=== PATIENT | male | born 1985 | race American Indian/Alaskan Native ===

== ENCOUNTER 2020-09-21 21:20 | Emergency (ER) | payer MEDICAID ==
--- NOTE | 2020-09-21 21:31 | Emergency Department Report ---
Blank Doc - Documentation Documentation: 35-year-old male that presents with right upper abdominal pain and epigastric pain times several days with some nausea. Exam; right upper quad tenderness. 1- This initial assessment/diagnostic orders/clinical plan/ treatment(s) is/are subject to change based on pt's health status, clinical progression and re- assessment by fellow clinical providers in the ED. Further treatment and workup at subsequent clinical provers discretion. Patient/guardians urged not to elope from ED as their condition may be serious if not clinically assessed and managed. 2-labs 3-UA
[2020-09-21 21:43] LABS: Basophils # (Auto) 0.1 K/mm3 (0.0-0.1); Basophils % (Auto) 0.8 % (0.0-1.8); Eosinophils # (Auto) 0.2 K/mm3 (0.0-0.4); Eosinophils % (Auto) 2.4 % (0.0-4.3); Hematocrit 46.5 % (35.5-45.6); Hemoglobin 16.6 gm/dl (11.8-15.2); Lymphocytes # (Auto) 2.8 K/mm3 (1.2-5.4); Lymphocytes % (Auto) 38.9 % (13.4-35.0); Mean Corpuscular HGB Conc 36 % (32-34); Mean Corpuscular Volume 91 fl (84-94); Monocytes # (Auto) 0.8 K/mm3 (0.0-0.8); Platelet Count 223 K/mm3 (140-440); Red Blood Count 5.11 M/mm3 (3.65-5.03); Red Cell Distribution Width 13.1 % (13.2-15.2)
[2020-09-21 22:02] LABS: Alanine Aminotransferase 67 units/L (7-56); Albumin 4.5 g/dL (3.9-5); BUN/Creatinine Ratio 8; Blood Urea Nitrogen 11 mg/dL (9-20); Calcium 10.7 mg/dL (8.4-10.2); Hemolysis Index 19
[2020-09-21 22:11] LABS: Bilirubin,Urine NEG (Negative); Blood,Urine NEG (Negative); Color,Urine Yellow (Yellow); Mucus,Urine FEW /HPF; Protein,Urine <15 mg/dL mg/dL (Negative); RBC,Urine < 1.0 /HPF (0.0-6.0); Urobilinogen,Urine < 2.0 mg/dL (<2.0); WBC,Urine < 1.0 /HPF (0.0-6.0)
[2020-09-21] MEDS ORDERED: LIDOCAINE VISCOUS 2% 15 ML ORAL LIQD PO ONE (22:36)
[2020-09-21] MEDS ORDERED: ALUM-MAG HYDROXIDE-SIMETHICONE 200-200-20MG/5ML ORAL LIQD 30 ML PO ONE (22:36)
--- NOTE | 2020-09-21 22:40 | Emergency Department Report ---
ED Abdominal Pain HPI - General Chief Complaint: Abdominal Pain Stated Complaint: PAIN IN MIDDLE OF CHEST Time Seen by Provider: 09/21/20 21:30 Source: patient Mode of arrival: Ambulatory Limitations: No Limitations - History of Present Illness Initial Comments: Patient is 35 years old male with no significant past medical history. Patient presented to the ER complaining of epigastric abdominal pain for several days. Patient denied any radiation to the chest. Patient describes his pain as burning sensation. Patient noticed that pain increase with spicy food. Patient stated that he had this issue before and he was diagnosed with gastric ulcer at [facility]. Patient denied any chest pain or shortness of breath. No nausea or vomiting. MD Complaint: abdominal pain -: days(s) Location: epigastric Radiation: none Migration to: no migration Quality: burning Consistency: intermittent - Related Data Allergies Allergy/AdvReac Type Severity Reaction Status Date / Time No Known Allergies Allergy Unverified 09/21/20 21:30 ED Review of Systems ROS: Stated complaint: PAIN IN MIDDLE OF CHEST Other details as noted in HPI Comment: All other systems reviewed and negative Constitutional: denies: chills, fever Respiratory: denies: cough, shortness of breath Cardiovascular: denies: chest pain, palpitations Gastrointestinal: abdominal pain. denies: nausea, vomiting, diarrhea, constipation, hematemesis, melena, hematochezia Neurological: denies: headache, weakness, numbness, paresthesias ED Past Medical Hx - Past Medical History Previous Medical History?: No - Social History Smoking Status: Current Every Day Smoker Substance Use Type: None ED Physical Exam - General Limitations: No Limitations General appearance: alert, in no apparent distress - Head Head exam: Present: atraumatic, normocephalic, normal inspection - Eye Eye exam: Present: normal appearance - ENT ENT exam: Present: normal exam, normal orophraynx, mucous membranes moist - Neck Neck exam: Present: normal inspection, full ROM. Absent: tenderness, meningismus - Respiratory Respiratory exam: Present: normal lung sounds bilaterally - Cardiovascular Cardiovascular Exam: Present: regular rate, normal rhythm, normal heart sounds - GI/Abdominal GI/Abdominal exam: Present: soft, normal bowel sounds. Absent: distended, tenderness, guarding, rebound, rigid, organomegaly, pulsatile mass, hernia - Back Exam Back exam: Present: normal inspection, full ROM. Absent: CVA tenderness (R), CVA tenderness (L) - Neurological Exam Neurological exam: Present: alert, oriented X3, CN II-XII intact - Psychiatric Psychiatric exam: Present: normal mood ED Course Vital Signs 09/21/20 21:25 Temperature 98.5 F Pulse Rate 86 Respiratory 16 Rate Blood Pressure 135/99 O2 Sat by Pulse 99 Oximetry ED Medical Decision Making - Lab Data Result diagrams: 09/21/20 21:31 09/21/20 21:31 - Medical Decision Making Patient is 35 years old male with no significant past medical history. Patient presented to the ER complaining of epigastric abdominal pain for several days. Patient denied any radiation to the chest. Patient describes his pain as burning sensation. Patient noticed that pain increase with spicy food. Patient stated that he had this issue before and he was diagnosed with gastric ulcer at [facility]. Patient denied any chest pain or shortness of breath. No nause a or vomiting. Labs reviewed and is unremarkable. Patient given GI cocktail and stated that his pain completely resolved. I believe patient symptom is most likely related to peptic ulcer or gastritis. Patient given prescription for Nexium and advised to follow-up with his primary care physician in the next 2 to 3 days and to return to the ER if he develop any new symptoms. Critical care attestation.: If time is entered above; I have spent that time in minutes in the direct care of this critically ill patient, excluding procedure time. ED Disposition Clinical Impression: Acute abdominal pain, Gastritis Disposition: - TO HOME OR SELFCARE Is pt being admited?: No Condition: Stable Instructions: Abdominal Pain, Adult, Gastritis, Adult Referrals: DEVON JOYA MD [Primary Care Provider] - 3-5 Days
[2020-09-21 23:56] VITALS: BP 132/66
== END 2020-09-21 23:57 | disposition home or self-care (01) ==
LOC: ED 21:20
DX: K29.70 Gastritis, unspecified, without bleeding (principal); R10.13 Epigastric pain; F17.200 Nicotine dependence, unspecified, uncomplicated
CPT/HCPCS: 36415; 80053; 81001; 83690; 85025

== ENCOUNTER 2021-03-16 18:53 | Emergency (ER) | payer MEDICARE ==
[2021-03-16 21:15] VITALS: BP 137/98
[2021-03-17 00:36] LABS: Basophils % (Auto) 0.4 % (0.0-1.8); Eosinophils # (Auto) 0.2 K/mm3 (0.0-0.4); Eosinophils % (Auto) 3.8 % (0.0-4.3); Hematocrit 50.5 % (35.5-45.6); Hemoglobin 17.1 gm/dl (11.8-15.2); Lymphocytes # (Auto) 2.4 K/mm3 (1.2-5.4); Lymphocytes % (Auto) 43.1 % (13.4-35.0); Mean Corpuscular HGB Conc 34 % (32-34); Mean Corpuscular Volume 93 fl (84-94); Monocytes # (Auto) 0.7 K/mm3 (0.0-0.8); Monocytes % (Auto) 12.9 % (0.0-7.3); Platelet Count 195 K/mm3 (140-440); Red Blood Count 5.42 M/mm3 (3.65-5.03)
[2021-03-17 00:57] LABS: Alanine Aminotransferase 45 units/L (7-56); Albumin 4.6 g/dL (3.9-5); BUN/Creatinine Ratio 6; Bilirubin,Direct < 0.2 mg/dL (0-0.2); Blood Urea Nitrogen 9 mg/dL (9-20); Calcium 9.5 mg/dL (8.4-10.2); Hemolysis Index 8
[2021-03-17] MEDS ORDERED: ALUM-MAG HYDROXIDE-SIMETHICONE 200-200-20MG/5ML ORAL LIQD 30 ML PO ONE (02:33)
[2021-03-17] MEDS ORDERED: LIDOCAINE VISCOUS 2% 15 ML ORAL LIQD PO ONE (02:33)
[2021-03-17] MEDS ORDERED: HYOSCYAMINE SUBL 0.125 MG TAB SL ONE (02:33)
--- NOTE | 2021-03-17 02:39 | Emergency Department Report ---
ED General Adult HPI - General Chief complaint: Abdominal Pain Stated complaint: ABD PAIN Time Seen by Provider: 03/17/21 02:25 Source: patient Mode of arrival: Ambulatory Limitations: No Limitations - History of Present Illness Initial comments: 35-year-old male patient with history of recurrent abdominal pain presents to the emergency department with complaints of epigastric pain starting 3 days ago. Pain is worse with eating and lying supine. Patient states symptoms are consistent with prior episodes of abdominal pain. He states he was evaluated at [facility] [place] [place] and diagnosed with both GERD and peptic ulcer disease. He also states he has never been evaluated by [employer] [facility] or undergone endoscopy. GI cocktails have been helpful in relieving his symptoms on prior occasions. He is not currently on H2 blockers or PPIs. States he does not consume alcohol on a regular basis. Surgical history includes prior appendectomy. Denies f ever, chills, nausea, vomiting, diarrhea, constipation, chest pain, shortness of breath. Denies all other complaints at this time. - Related Data Previous Rx's Medication Instructions Recorded Last Taken Type Esomeprazole Magnesium [NexIUM] 40 mg PO QDAY #30 capsule. 09/21/20 Unknown Rx Ondansetron [Zofran Odt] 4 mg PO Q8HR PRN #14 tab.tim 09/21/20 Unknown Rx Famotidine [Pepcid] 20 mg PO BID 14 Days tablet 03/17/21 Unknown Rx Omeprazole 20 mg PO DAILY 14 Days tab.delvis. 03/17/21 Unknown Rx Allergies Allergy/AdvReac Type Severity Reaction Status Date / Time No Known Allergies Allergy Unverified 09/21/20 21:30 ED Review of Systems ROS: Stated complaint: ABD PAIN Other details as noted in HPI Other: GENERAL: Negative for fever, chills, weight change, anorexia, fatigue. ENT: Negative for ear pain, difficulty hearing, sore throat, nasal congestion, epistaxis. CARDIOVASCULAR: Negative for chest pain, palpitations, lower extremity swelling. PULMONARY: Negative for cough, dyspnea, wheezing, orthopnea, cyanosis. GASTROINTESTINAL: Positive for abdominal pain. MUSCULOSKELETAL: Negative for joint pain, joint swelling, myalgias, back pain, neck pain. NEUROLOGICAL: Negative for headache, seizure, syncope, paresthesias, weakness. INTEGUMENTARY: Negative for erythema, rash, diaphoresis, laceration, ecchymosis. HEMATOLOGICAL: Negative for hemoptysis, hematemesis, hematochezia, hematuria. PSYCHIATRIC: Negative for hallucinations, suicidal ideation, homicidal ideation, anxiety, depression. ED Past Medical Hx - Past Medical History Previous Medical History?: No - Surgical History Past Surgical History?: Yes Additional Surgical History: appendectomy - Social History Smoking Status: Current Every Day Smoker Substance Use Type: None - Medications Home Medications: Home Medications Medication Instructions Recorded Confirmed Last Taken Type Esomeprazole Magnesium [NexIUM] 40 mg PO QDAY #30 lauren. 09/21/20 Unknown Rx Ondansetron [Zofran Odt] 4 mg PO Q8HR PRN #14 tab.rapdis 09/21/20 Unknown Rx Famotidine [Pepcid] 20 mg PO BID 14 Days tablet 03/17/21 Unknown Rx Omeprazole 20 mg PO DAILY 14 Days tab.rap. 03/17/21 Unknown Rx ED Physical Exam - General Limitations: No Limitations - Other Other exam information: General: Awake and alert. No acute distress. Head: Atraumatic, normocephalic. Eyes: EOMI. Pupils are equal and round. Normal sclera and conjunctiva. ENT: Oral mucosa is moist. Normal pharyngeal exam. Neck: Supple. No lymphadenopathy. Pulmonary: No respiratory distress. Clear to auscultation bilaterally. Cardiac: Regular rate and rhythm. Pulses are palpable and equal bilaterally. No lower extremity cyanosis or edema. Skin: Warm and dry. No rashes. Abdomen: Soft, non-protuberant. Mild epigastric tenderness without guarding, rigidity, or rebound. Bowel sounds are normal. No organomegaly or masses noted. Alegre sign is negative. Back: Normal alignment. No CVA tenderness. Extremities: Symmetrical. Full range of motion intact. Neurological: Alert and oriented, appropriately interactive, no focal deficits. Psych: Cooperative. Appropriate mood and affect. Speech is evenly metered. Thoughts are logically construed. ED Course Vital Signs 03/16/21 20:51 Temperature 98.2 F Pulse Rate 57 L Respiratory 16 Rate Blood Pressure 137/98 O2 Sat by Pulse 99 Oximetry ED Medical Decision Making - Lab Data Result diagrams: 03/16/21 23:43 03/16/21 23:43 - Medical Decision Making Differential diagnosis including but not limited to: cholecystitis, khadar lithiasis, ascending cholangitis, pancreatitis, peptic ulcer disease, GERD On reevaluation, patient remains stable. Repeat abdominal exam is benign. Labs are unremarkable. Patient is afebrile, hemodynamically stable, no distress. History and exam findings suggestive of PUD vs. GERD. Symptoms have been occurring intermittently for several months. No clinical indication for further diagnostic work-up on an emergent basis at this time. Patient will be treated symptomatically and referred to [facility] for further evaluation on an outpatient basis. Patient expressed understanding and is agreeable to plan of care. Lifestyle modifications discussed. Dietary modifications discussed. Strict return precautions provided. Repeat exam is unremarkable and benign. History, exam, diagnostic testing, and current condition do not suggest worrisome pathology to warrant further testing, continued ED treatment, admission, or surgical evaluation at this point. Given the low probability of a significant medical illness, it would be more likely to result in harm than benefit to perform further testing at this stage. Discussed findings, presumptive diagnosis, need for follow-up and specific signs/symptoms that should prompt immediate return to the emergency department. Instructions were explained in detail to the patient in addition to giving written discharge information. Patient expressed understanding and was given the opportunity to ask questions, all of which were satisfactorily answered prior to discharge home. Critical care attestation.: If time is entered above; I have spent that time in minutes in the direct care of this critically ill patient, excluding procedure time. ED Disposition Clinical Impression: Recurrent upper abdominal pain Disposition: - TO HOME OR SELFCARE Is pt being admited?: No Does the pt Need Aspirin: No Condition: Stable Instructions: Gastroesophageal Reflux Disease, Adult, [id number] Additional Instructions: Take Pepcid as directed. Take Omeprazole as directed. Avoid greasy/fatty/acidic/spicy foods, which may worsen your symptoms. Avoid alcohol, which may worsen your symptoms. Avoid lying flat within 3 hours of eating or drinking, which may worsen your symptoms. Follow-up with [facility] this week. Call today to schedule an appointment. See referral information below. Return to the emergency department immediately for new or worsening symptoms. Prescriptions: Omeprazole 20 mg PO DAILY 14 Days tab.rap. Famotidine [Pepcid] 20 mg PO BID 14 Days tablet Referrals: [facility] [Provider Group] - 3-5 Days Time of Disposition: 02:48
== END 2021-03-17 04:06 | disposition home or self-care (01) ==
LOC: ED 18:53
DX: R10.13 Epigastric pain (principal); Z98.890 Other specified postprocedural states; F17.200 Nicotine dependence, unspecified, uncomplicated
CPT/HCPCS: 36415; 80048; 80076; 83690; 85025; 99283

== ENCOUNTER 2021-12-28 14:28 | Emergency (ER) | payer MEDICARE ==
[2021-12-28] MEDS ORDERED: ONDANSETRON 4 MG ODT TAB PO ONE (21:48)
[2021-12-28] MEDS ORDERED: SUCRALFATE 1 GM TAB PO ONE (21:48)
[2021-12-28] MEDS ORDERED: FAMOTIDINE 20 MG TAB PO ONE (21:48)
[2021-12-28] MEDS ORDERED: DICYCLOMINE 20 MG TAB PO ONE (21:49)
--- NOTE | 2021-12-28 22:10 | Emergency Department Report ---
ED Abdominal Pain HPI - General Chief Complaint: Abdominal Pain Stated Complaint: ABDOMINAL PAIN Source: patient Mode of arrival: Ambulatory Limitations: No Limitations - History of Present Illness Initial Comments: Patient is a 36-year-old -Iranian male with a history of chronic alcohol abuse and chronic recurrent alcoholic gastritis who presents to the ED with complaint of acute onset of persistent epigastric pain with nausea and vomiting for the last few days after heavy alcohol consumption 3 days ago. Patient states that the last 2 days he has not been able to keep anything down because of persistent epigastric pain and nausea and vomiting. Patient admits to heavy alcohol consumption 3 days ago. Patient denies dizziness, syncope, fever, chills, diarrhea, sore throat, chest pain, shortness of breath, dysuria, urinary frequency and urgency and testicular pain, cough or headache. MD Complaint: abdominal pain (epigastric), other (nausea and vomiting) -: Sudden, days(s) (3) Location: epigastric Radiation: none Migration to: no migration Severity: moderate Severity scale (0 -10): 4 Quality: aching, burning Consistency: constant Improves With: nothing Context: other (chronic alcohol abuse) Associated Symptoms: denies other symptoms, nausea, vomiting. denies: diarrhea, fever, chills, constipation, dysuria, hematemesis, hematochezia, melena, hematuria, anorexia, syncope - Related Data Previous Rx's Medication Instructions Recorded Last Taken Type Omeprazole 20 mg PO DAILY 14 Days tab. 03/17/21 Unknown Rx Dicyclomine [Bentyl] 20 mg PO Q6H PRN #30 tablet 12/28/21 Unknown Rx Esomeprazole Magnesium [NexIUM] 40 mg PO QDAY #60 capsule. 12/28/21 Unknown Rx Famotidine [Pepcid] 20 mg PO BID #60 tablet 12/28/21 Unknown Rx Ondansetron [Zofran ODT TAB] 4 mg PO Q8HR PRN #15 tabarthur 12/28/21 Unknown Rx Allergies Allergy/AdvReac Type Severity Reaction Status Date / Time No Known Allergies Allergy Unverified 09/21/20 21:30 ED Review of Systems ROS: Stated complaint: ABDOMINAL PAIN Other details as noted in HPI Constitutional: denies: chills, fever Eyes: denies: eye pain, eye discharge, vision change ENT: denies: ear pain, throat pain Respiratory: denies: cough, shortness of breath, wheezing Cardiovascular: denies: chest pain, palpitations Endocrine: no symptoms reported Gastrointestinal: abdominal pain (epigastric), nausea, vomiting. denies: diarrhea Genitourinary: denies: urgency, dysuria Musculoskeletal: denies: back pain, joint swelling, arthralgia Skin: denies: rash, lesions Neurological: denies: headache, weakness, paresthesias Psychiatric: denies: anxiety, depression Hematological/Lymphatic: denies: easy bleeding, easy bruising ED Past Medical Hx - Past Medical History Previous Medical History?: Yes - Surgical History Past Surgical History?: Yes Additional Surgical History: appendectomy - Social History Smoking Status: Current Every Day Smoker Substance Use Type: None - Medications Home Medications: Home Medications Medication Instructions Recorded Confirmed Last Taken Type Omeprazole 20 mg PO DAILY 14 Days tab.rap. 03/17/21 Unknown Rx Dicyclomine [Bentyl] 20 mg PO Q6H PRN #30 tablet 12/28/21 Unknown Rx Esomeprazole Magnesium [NexIUM] 40 mg PO QDAY #60 capsule. 12/28/21 Unknown Rx Famotidine [Pepcid] 20 mg PO BID #60 tablet 12/28/21 Unknown Rx Ondansetron [Zofran ODT TAB] 4 mg PO Q8HR PRN #15 tab.rapant 12/28/21 Unknown Rx ED Physical Exam - General Limitations: No Limitations General appearance: alert, in no apparent distress - Head Head exam: Present: atraumatic, normocephalic, normal inspection - Eye Eye exam: Present: normal appearance, PERRL, EOMI Pupils: Present: normal accommodation - ENT ENT exam: Present: normal exam, normal orophraynx, mucous membranes moist, TM's normal bilaterally, normal external ear exam - Neck Neck exam: Present: normal inspection, full ROM. Absent: tenderness - Respiratory Respiratory exam: Present: normal lung sounds bilaterally. Absent: respiratory distress, wheezes, rales, rhonchi, chest wall tenderness, accessory muscle use, decreased breath sounds, prolonged expiratory - Cardiovascular Cardiovascular Exam: Present: regular rate, normal rhythm, normal heart sounds. Absent: systolic murmur, diastolic murmur, rubs, gallop - GI/Abdominal GI/Abdominal exam: Present: soft, tenderness (palpable mild epigastric tenderness), normal bowel sounds. Absent: guarding, rebound, hyperactive bowel sounds, hypoactive bowel sounds, organomegaly - Extremities Exam Extremities exam: Present: normal inspection, full ROM, normal capillary refill. Absent: tenderness - Back Exam Back exam: Present: normal inspection, full ROM. Absent: tenderness, CVA tenderness (R), CVA tenderness (L), muscle spasm, paraspinal tenderness, vertebral tenderness - Neurological Exam Neurological exam: Present: alert, oriented X3, CN II-XII intact, normal gait, reflexes normal - Psychiatric Psychiatric exam: Present: normal affect, normal mood - Skin Skin exam: Present: warm, dry, intact, normal color. Absent: rash ED Course Vital Signs 12/28/21 15:33 Temperature 98.3 F Pulse Rate 69 Respiratory 16 Rate Blood Pressure 124/91 [Left] O2 Sat by Pulse 99 Oximetry ED Medical Decision Making - Medical Decision Making This is a 36-year-old -Iranian male with a history of chronic alcohol abuse and chronic recurrent alcoholic gastritis who presents to the ED with complaint of acute onset of persistent epigastric pain with nausea and vomiting for the last few days after heavy alcohol consumption 3 days ago. Patient states that the last 2 days he has not been able to keep anything down because of persistent epigastric pain and nausea and vomiting. Patient admits to heavy alcohol consumption 3 days ago. In the ED, patient is alert and oriented x3 and is not in any distress. Patient was treated for nausea and vomiting and given antacids for gastritis and GERD precautions. On reevaluation, patient felt better and was discharged home on medications and advised to follow-up with his primary care physician in 7 to 10 days for reevaluation. Patient was also advised to consider quitting alcohol consumption especially binge drinking to avoid recurrent chronic gastritis. Patient was advised return to the ED immed iately if symptoms get worse. - Differential Diagnosis GERD; gastritis; gastroenteritis; alcohol abuse Critical care attestation.: If time is entered above; I have spent that time in minutes in the direct care of this critically ill patient, excluding procedure time. ED Disposition Clinical Impression: Chronic epigastric pain, Nausea and vomiting in adult Chronic alcoholic gastritis Qualifiers: Gastritis bleeding: presence of bleeding unspecified Qualified Code(s): K29.20 - Alcoholic gastritis without bleeding Disposition: 01 HOME / SELF CARE / HOMELESS Is pt being admited?: No Does the pt Need Aspirin: No Condition: Stable Instructions: Gastritis, Adult, [id number], Abdominal Pain, Adult, [id number], Nausea and Vomiting, Adult, [id number] Additional Instructions: Take medication with food, drink plenty of fluids, follow-up with your primary care physician in 7 to 10 days for reevaluation. Return to the ED immediately if symptoms get worse. Prescriptions: Dicyclomine [Bentyl] 20 mg PO Q6H PRN #30 tablet PRN Reason: Pain , Severe (7-10) Esomeprazole Magnesium [NexIUM] 40 mg PO QDAY #60 capsule. Famotidine [Pepcid] 20 mg PO BID #60 tablet Ondansetron [Zofran ODT TAB] 4 mg PO Q8HR PRN #15 tab.rapdis PRN Reason: Nausea And Vomiting Referrals: [facility] [Provider Group] - 3-5 Days Forms: Work/School Release Form(ED) Time of Disposition: 22:09 Print Language: SLOVAK
[2021-12-28 23:19] VITALS: BP 132/92
== END 2021-12-28 23:19 | disposition home or self-care (01) ==
LOC: ED 14:28
DX: K29.20 Alcoholic gastritis without bleeding (principal); G89.29 Other chronic pain; F17.200 Nicotine dependence, unspecified, uncomplicated; Z90.49 Acquired absence of other specified parts of digestive tract; Z98.890 Other specified postprocedural states; Z79.899 Other long term (current) drug therapy
CPT/HCPCS: 99282; J3490; Q0162